=== PATIENT | male | born 1970 | race Caucasian/White ===

== ENCOUNTER → 2020-02-22 | Outpatient (CLI) | payer SELFPAY ==
--- NOTE | 2020-02-22 12:22 | Diagnostic Imaging Report ---
PROCEDURE: CT head without contrast. TECHNIQUE: Multiple contiguous axial images were obtained through the brain without the use of intravenous contrast. Auto Exposure Controls were utilized during the CT exam to meet ALARA standards for radiation dose reduction. INDICATION: Unknown history. The patient is unable to communicate. No prior examinations are available for comparison. FINDINGS: The ventricles and sulci are within normal limits. There is no hydrocephalus or cerebral edema. There is no midline shift or mass effect. There is no intracranial mass, hemorrhage, or extra-axial fluid collection. The visualized paranasal sinuses and mastoid air cells are clear. There are no regional areas of decreased attenuation appreciated to suggest an acute CVA. IMPRESSION: No acute intracranial abnormality. Dictated by: Dictated on workstation # [id number]
== END ==
LOC: RAD FS 11:48
PROVIDERS: ATTEND Nurse Practitioner
DX: R47.9 Unspecified speech disturbances (principal)
CPT/HCPCS: 70450

== ENCOUNTER → 2020-02-28 | Outpatient (CLI) | payer SELFPAY ==
--- NOTE | 2020-02-28 15:51 | Diagnostic Imaging Report ---
PROCEDURE: MR imaging of the brain without contrast. TECHNIQUE: Multiplanar, multisequence MR imaging of the brain was performed without contrast. INDICATION: Confusion. Difficulty with speech. COMPARISON: CT head on 02/22/2020. FINDINGS: No acute ischemia, mass, or hemorrhage. A small amount of chronic microvascular disease is seen in the periventricular and subcortical white matter. The ventricles and cortical sulci are mildly prominent. The basilar cisterns are symmetric and unremarkable. The sellar and suprasellar regions have a normal appearance. The brainstem and posterior fossa are unremarkable. The paranasal sinuses and mastoid air cells demonstrate normal signal characteristics. The globes and orbits are symmetric and unremarkable. The scalp and calvarium have a normal appearance. IMPRESSION: 1. No acute ischemia, mass, or hemorrhage. 2. Small amount of scattered chronic microvascular disease with mild generalized parenchymal volume loss. Dictated by: Dictated on workstation # [id number]
== END ==
LOC: RAD 14:51
PROVIDERS: ATTEND Nurse Practitioner
DX: R41.0 Disorientation, unspecified (principal); R47.9 Unspecified speech disturbances; F45.8 Other somatoform disorders
CPT/HCPCS: 70551

== ENCOUNTER 2020-03-09 11:26 | Emergency (ER) | payer SELFPAY ==
[~2020-03-09] VITALS: Ht 172.7 cm; Wt 48.7 kg
--- NOTE | 2020-03-09 11:42 | ED Psychosocial ---
General Stated Complaint: PSYCH EVAL Source: patient Exam Limitations: clinical condition (VIKAS PARK DO) History of Present Illness Date Seen by Provider: Mar 09, 2020 Time Seen by Provider: 11:32 Initial Comments The patient is a 49-year-old male who presents for evaluation of his mental health. The patient is unable to provide any meaningful history. He does deny any suicidal or homicidal thoughts. The patient's father drove him to the emergency department is currently in his car in the parking lot due to the coronavirus pandemic. The patient's booster plant operator was involved with the patient toagapito alida and recommended that he come to the emergency department for evaluation and likely placement. Awaiting additional information from the patient's father and booster plant operator at this time. The patient is denying any complaints currently. He is having difficulty with speaking and is stuttering. Severity: moderate Associated Symptoms: denies symptoms (VIKAS PARK DO) Allergies and Home Medications Allergies Coded Allergies: No Known Drug Allergies (Unverified , 03/09/20) Patient Home Medication List Home Medication List Reviewed: Yes (VIKAS PARK DO) Review of Systems Constitutional: no symptoms reported EENTM: no symptoms reported Respiratory: no symptoms reported Cardiovascular: no symptoms reported Gastrointestinal: no symptoms reported Genitourinary: no symptoms reported Musculoskeletal: no symptoms reported Skin: no symptoms reported Psychiatric/Neurological: Anxiety, Other (abnormal behavior) (VIKAS PARK DO) All Other Systems Reviewed Negative Unless Noted: Yes (VIKAS PARK DO) Past Bclytmg-Szjxsx-Ceckrd Hx Past Med/Social Hx: Reviewed Nursing Past Med/Soc Hx (VIKAS PARK DO) Physical Exam Vital Signs - First Documented 03/09/20 11:30 Temp 37.0 Pulse 86 Resp 18 B/P (MAP) 151/88 (109) Pulse Ox 97 O2 Delivery Room Air (LIONEL MOFFETT MD) Capillary Refill : (VIKAS PARK DO) Height, Weight, BMI Height: '" Weight: lbs. oz. kg; BMI Method: General Appearance: WD/WN, no apparent distress HEENT: PERRL/EOMI, pharynx normal Neck: non-tender, normal inspection Respiratory: lungs clear, normal breath sounds, no respiratory distress, no accessory muscle use Cardiovascular: regular rate, rhythm, no edema, no JVD Gastrointestinal: normal bowel sounds, non tender, soft Extremities: non-tender, no pedal edema Neurologic/Psychiatric: no motor/sensory deficits, alert Behavior/Eye Contact: cooperative, avoids eye contact, decreased rate of speech, other (anxious) Skin: normal color, warm/dry (VIKAS PARK DO) Progress/Results/Core Measures Results/Orders Lab Results Laboratory Tests Test 03/09/20 11:40 03/09/20 12:07 Range/Units White Blood Count 5.1 4.3-11.0 10^3/uL Red Blood Count 4.74 4.35-5.85 10^6/uL Hemoglobin 13.0 L 13.3-17.7 G/DL Hematocrit 39 L 40-54 % Mean Corpuscular Volume 83 80-99 FL Mean Corpuscular Hemoglobin 27 25-34 PG Mean Corpuscular Hemoglobin Concent 33 32-36 G/DL Red Cell Distribution Width 14.0 10.0-14.5 % Platelet Count 392 130-400 10^3/uL Mean Platelet Volume 9.1 7.4-10.4 FL Neutrophils (%) (Auto) 63 42-75 % Lymphocytes (%) (Auto) 25 12-44 % Monocytes (%) (Auto) 9 0-12 % Eosinophils (%) (Auto) 2 0-10 % Basophils (%) (Auto) 1 0-10 % Neutrophils # (Auto) 3.2 1.8-7.8 X 10^3 Lymphocytes # (Auto) 1.3 1.0-4.0 X 10^3 Monocytes # (Auto) 0.4 0.0-1.0 X 10^3 Eosinophils # (Auto) 0.1 0.0-0.3 10^3/uL Basophils # (Auto) 0.0 0.0-0.1 10^3/uL Sodium Level 142 135-145 MMOL/L Potassium Level 4.1 3.6-5.0 MMOL/L Chloride Level 104 98-107 MMOL/L Carbon Dioxide Level 23 21-32 MMOL/L Anion Gap 15 H 5-14 MMOL/L Blood Urea Nitrogen 15 7-18 MG/DL Creatinine 0.75 0.60-1.30 MG/DL Estimat Glomerular Filtration Rate > 60 BUN/Creatinine Ratio 20 Glucose Level 109 H 70-105 MG/DL Calcium Level 9.6 8.5-10.1 MG/DL Corrected Calcium 9.3 8.5-10.1 MG/DL Total Bilirubin 0.4 0.1-1.0 MG/DL Aspartate Amino Transf (AST/SGOT) 16 5-34 U/L Alanine Aminotransferase (ALT/SGPT) 18 0-55 U/L Alkaline Phosphatase 61 40-136 U/L Total Protein 7.0 6.4-8.2 GM/DL Albumin 4.4 3.2-4.5 GM/DL Salicylates Level < 5.0 L 5.0-20.0 MG/DL Acetaminophen Level < 10 L 10-30 UG/ML Serum Alcohol < 10 <10 MG/DL Urine Color YELLOW Urine Clarity CLEAR Urine pH 6.0 5-9 Urine Specific [place] >1.030 1.016-1.022 Urine Protein NEGATIVE NEGATIVE Urine Glucose (UA) NEGATIVE NEGATIVE Urine Ketones NEGATIVE NEGATIVE Urine Nitrite NEGATIVE NEGATIVE Urine Bilirubin NEGATIVE NEGATIVE Urine Urobilinogen 0.2 < = 1.0 MG/DL Urine Leukocyte Esterase NEGATIVE NEGATIVE Urine RBC (Auto) NEGATIVE NEGATIVE Urine RBC NONE /HPF Urine WBC NONE /HPF Urine Squamous Epithelial Cells 0-2 /HPF Urine Crystals PRESENT H /LPF Urine Calcium Oxalate Crystals FEW H /LPF Urine Bacteria NONE /HPF Urine Casts NONE /LPF Urine Mucus SMALL H /LPF Urine Culture Indicated NO Urine Opiates Screen NEGATIVE NEGATIVE Urine Oxycodone Screen NEGATIVE NEGATIVE Urine Methadone Screen NEGATIVE NEGATIVE Urine Propoxyphene Screen NEGATIVE NEGATIVE Urine Barbiturates Screen NEGATIVE NEGATIVE Ur Tricyclic Antidepressants Screen NEGATIVE NEGATIVE Urine Phencyclidine Screen NEGATIVE NEGATIVE Urine Amphetamines Screen NEGATIVE NEGATIVE Urine Methamphetamines Screen NEGATIVE NEGATIVE Urine Benzodiazepines Screen NEGATIVE NEGATIVE Urine Cocaine Screen NEGATIVE NEGATIVE Urine Cannabinoids Screen NEGATIVE NEGATIVE (LIONEL MOFFETT MD) Vital Signs/I&O (LIONEL MOFFETT MD) Progress Progress Note : Progress Note @1225 - Case discussed with the patient's father who states that the patient lives at home alone and lately has been noncompliant with his medications and also not eating. The father discussed this with the patient's booster plant operator, Vinayak, who felt that the patient would need to be placed inpatient somewhere. @1800 - Labs unremarkable. Mental health evaluation completed, awaiting [facility] t. Pt care transferred from Dr. Park to Dr. Moffett at this time. (VIKAS PARK DO) Progress Note #1: Time: 18:00 Progress Note Patient still calm and cooperative with staff and pending psychiatric inpatient placement. Progress Note #2: Time: 06:00 Progress Note Patient still awaiting involuntary placement. care passed to Dr. Cooper at shift change on 10 Mar 2020 at 0600. (LIONEL MOFFETT MD) Progress Note #1: Time: 16:31 Progress Note #2: Progress Note all above appreciated, pt has done fine no complaints can't really evaluated pt minimally verbal is medically cleared have now received call from [facility] Dr. Lara agrees to accept will transfer (JANEY COOPER MD) Comment @1148 - normal sinus rhythm, rate of 80, left axis deviation is noted, no acute ischemic findings noted, no STEMI, reviewed and interpreted by myself (VIKAS PARK DO) Departure Impression Primary Impression: Self-care deficit for feeding Additional Impression: Self-care deficit for medication administration Disposition: 65 XFER TO PSYCH HOSP/UNIT Condition: Stable Departure-Patient Inst. Referrals: [facility] (PCP) Primary Care Physician JEET JARRETT APRN (Family) Primary Care Physician VIKSA PARK DO Mar 09, 2020 11:42 LIONEL MOFFETT MD Mar 09, 2020 18:36 JANEY COOPER MD March 10, 2020 16:35
[2020-03-09 11:56] LABS: WHITE BLOOD COUNT 5.1 10^3/uL (4.3-11.0)
[2020-03-09 11:57] LABS: BASOPHILS % (AUTO) 1 % (0-10); EOSINOPHILS # (AUTO) 0.1 10^3/uL (0.0-0.3); EOSINOPHILS % (AUTO) 2 % (0-10); HEMATOCRIT 39 % (40-54); LYMPHOCYTES # (AUTO) 1.3 X 10^3 (1.0-4.0); LYMPHOCYTES % (AUTO) 25 % (12-44); MEAN CORPUSCULAR HEMOGLOBIN 27 PG (25-34); MEAN CORPUSCULAR HGB CONC 33 G/DL (32-36); MEAN CORPUSCULAR VOLUME 83 FL (80-99); MEAN PLATELET VOLUME 9.1 FL (7.4-10.4); MONOCYTES # (AUTO) 0.4 X 10^3 (0.0-1.0); MONOCYTES % (AUTO) 9 % (0-12); NEUTROPHILS # (AUTO) 3.2 X 10^3 (1.8-7.8); NEUTROPHILS % (AUTO) 63 % (42-75); PLATELET COUNT 392 10^3/uL (130-400)
[2020-03-09 12:09] LABS: BUN/CREATININE RATIO 20; CALCIUM 9.6 MG/DL (8.5-10.1); CARBON DIOXIDE 23 MMOL/L (21-32); CHLORIDE 104 MMOL/L (98-107); CREATININE SERUM 0.75 MG/DL (0.60-1.30); GFR ESTIMATED > 60; GLUCOSE 109 MG/DL (70-105); POTASSIUM 4.1 MMOL/L (3.6-5.0); SODIUM 142 MMOL/L (135-145)
[2020-03-09 12:10] LABS: ACETAMINOPHEN < 10 UG/ML (10-30); ALANINE AMINOTRANSFERASE 18 U/L (0-55); ALBUMIN 4.4 GM/DL (3.2-4.5); ALKALINE PHOSPHATASE 61 U/L (40-136); BILIRUBIN,TOTAL 0.4 MG/DL (0.1-1.0); SALICYLATE < 5.0 MG/DL (5.0-20.0)
[2020-03-09 12:22] LABS: BILIRUBIN,URINE NEGATIVE (NEGATIVE); CALCIUM OXALATE CRYSTALS,UR FEW /LPF; CLARITY,URINE CLEAR; COLOR,URINE YELLOW; GLUCOSE, URINE (UA) NEGATIVE (NEGATIVE); KETONES,URINE NEGATIVE (NEGATIVE); LEUKOCYTE ESTERASE ,URINE NEGATIVE (NEGATIVE); NITRITE,URINE NEGATIVE (NEGATIVE); PROTEIN,URINE NEGATIVE (NEGATIVE); SQUAMOUS EPITHELIAL CELL,UR 0-2 /HPF
[2020-03-09 12:28] LABS: AMPHETAMINE SCREEN, URINE NEGATIVE (NEGATIVE); BARBITURATE SCREEN URINE NEGATIVE (NEGATIVE); BENZODIAZEPINES SCREEN URINE NEGATIVE (NEGATIVE); CANNABINOID SCREEN, URINE NEGATIVE (NEGATIVE); COCAINE SCREEN URINE NEGATIVE (NEGATIVE); METHADONE STAT NEGATIVE (NEGATIVE); METHAMPHETAMINE SCREEN URINE S NEGATIVE (NEGATIVE); OPIATE SCREEN URINE NEGATIVE (NEGATIVE); OXYCODONE STAT NEGATIVE (NEGATIVE); PROPOXYPHENE STAT NEGATIVE (NEGATIVE); TRICYCLIC ANTIDEPRESSANTS SCRE NEGATIVE (NEGATIVE)
--- OUTSIDE RECORDS SUMMARY | 2020-03-09 12:31 | XMS REPORT | Continuity of Care Document ---
Author Organization Unknown Address Unknown Phone Unavailable Allergies There is no data. Medications There is no data. Problems Date Dx Coded Attending Type Code Diagnosis Diagnosed By 02/23/2020 GAY PINA APRN Ot R47.9 UNSPECIFIED SPEECH DISTURBANCES 02/24/2020 GAY PINA APRN Ot R47.9 UNSPECIFIED SPEECH DISTURBANCES 02/28/2020 GAY PINA APRN Ot R47.9 UNSPECIFIED SPEECH DISTURBANCES 02/29/2020 GAY PINA APRN Ot F45.8 OTHER SOMATOFORM DISORDERS 02/29/2020 GAY PINA APRN Ot R41.0 DISORIENTATION, UNSPECIFIED 02/29/2020 GAY PINA APRN Ot R47.9 UNSPECIFIED SPEECH DISTURBANCES Procedures There is no data. Results Test Result Range TSH w/ FREE T4 - 01/25/20 12:25 TSH 0.58 mIU/L 0.40-4.50 T4, FREE 1.6 ng/dL 0.8-1.8 CMP - 01/25/20 12:25 GLUCOSE 84 mg/dL 65-99 UREA NITROGEN (BUN) 18 mg/dL 7-25 CREATININE 0.97 mg/dL 0.70-1.33 eGFR NON-AFR. CAMBODIAN 90 mL/min/1.73m2 > OR = 60 eGFR 104 mL/min/1.73m2 > OR = 60 BUN/CREATININE RATIO NOT APPLICABLE (calc) 6-22 SODIUM 139 mmol/L 135-146 POTASSIUM 4.0 mmol/L 3.5-5.3 CHLORIDE 100 mmol/L 98-110 CARBON DIOXIDE 23 mmol/L 20-32 CALCIUM 10.1 mg/dL 8.6-10.3 PROTEIN, TOTAL 6.8 g/dL 6.1-8.1 ALBUMIN 4.6 g/dL 3.6-5.1 GLOBULIN 2.2 g/dL (calc) 1.9-3.7 ALBUMIN/GLOBULIN RATIO 2.1 (calc) 1.0-2. 5 BILIRUBIN, TOTAL 0.6 mg/dL 0.2-1.2 ALKALINE PHOSPHATASE 59 U/L 35-144 AST 15 U/L 10-35 ALT 15 U/L 9-46 CBC - 01/25/20 12:25 WHITE BLOOD CELL COUNT 4.7 Thousand/uL 3 .8-10.8 RED BLOOD CELL COUNT 5.29 Million/uL 4.2 0-5.80 HEMOGLOBIN 14.6 g/dL 13.2-17.1 HEMATOCRIT 43.5 % 38.5-50.0 MCV 82.2 fL 80.0-100.0 MCH 27.6 pg 27.0-33.0 MCHC 33.6 g/dL 32.0-36.0 RDW 13.8 % 11.0-15.0 PLATELET COUNT 281 Thousand/uL 140-400 MPV 10.6 fL 7.5-12.5 ABSOLUTE NEUTROPHILS 3041 cells/uL 1500- 7800 ABSOLUTE LYMPHOCYTES 1222 cells/uL 850-3 900 ABSOLUTE MONOCYTES 357 cells/uL 200-950 ABSOLUTE EOSINOPHILS 28 cells/uL 15-500 ABSOLUTE BASOPHILS 52 cells/uL 0-200 NEUTROPHILS 64.7 % NRG LYMPHOCYTES 26.0 % NRG MONOCYTES 7.6 % NRG EOSINOPHILS 0.6 % NRG BASOPHILS 1.1 % NRG Complete blood count (CBC) with automate d white blood cell (WBC) differential - 03/09/20 11:40 Blood leukocytes automated count (number/volume) 5.1 10*3/uL 4.3-11.0 Blood erythrocytes automated count (number/volume) 4.74 10*6/uL 4.35-5.85 Venous blood hemoglobin measurement (mass/volume) 13.0 g/dL 13.3-17.7 Blood hematocrit (volume fraction) 39 % 40-54 Automated erythrocyte mean corpuscular volume 83 [ foz_us] 80-99 Automated erythrocyte mean corpuscular h emoglobin (mass per erythrocyte) 27 pg 25-34 Automated erythrocyte mean corpuscular h emoglobin concentration measurement (mass/volume) 33 g/dL 32-36 Automated erythrocyte distribution width ratio 14. 0 % 10.0- 14.5 Automated blood platelet count (count/volume) 392 10*3/uL 130-400 Automated blood platelet mean volume measurement 9.1 [foz_us] 7.4-10.4 Automated blood neutrophils/100 leukocytes 63 % 42-75 Automated blood lymphocytes/100 leukocytes 25 % 12-44 Blood monocytes/100 leukocytes 9 % 0-12 Automated blood eosinophils/100 leukocytes 2 % 0-10 Automated blood basophils/100 leukocytes 1 % 0-10 Blood neutrophils automated count (number/volume) 3.2 10*3 1.8-7.8 Blood lymphocytes automated count (number/volume) 1.3 10*3 1.0-4.0 Blood monocytes automated count (number/volume) 0. 4 10*3 0.0-1.0 Automated eosinophil count 0.1 10*3/uL 0 .0-0.3 Automated blood basophil count (count/volume) 0.0 10*3/uL 0.0-0.1 Comprehensive metabolic panel - 03/09/20 11:40 Serum or plasma sodium measurement (moles/volume) 142 mmol/L 135-145 Serum or plasma potassium measurement (moles/volume) 4.1 mmol/L 3.6-5.0 Serum or plasma chloride measurement (moles/volume) 104 mmol/L 98-107 Carbon dioxide 23 mmol/L 21-32 Serum or plasma anion gap determination (moles/volume) 15 mmol/L 5-14 Serum or plasma urea nitrogen measurement (mass/volume ) 15 mg/dL 7-18 Serum or plasma creatinine measurement (mass/volume) 0.75 mg/dL 0.60-1.30 Serum or plasma urea nitrogen/creatinine mass ratio 20 NRG Serum or plasma creatinine measurement w ith calculation of estimated glomerular filtration rate > NRG Serum or plasma glucose measurement (mass/volume) 109 mg/dL 70-105 Serum or plasma calcium measurement (mass/volume) 9.6 mg/dL 8.5-10.1 Serum or plasma total bilirubin measurement (mass/volu me) 0.4 mg/dL 0.1-1.0 Serum or plasma alkaline phosphatase carmel surement (enzymatic activity/volume) 61 U/L 40-136 Serum or plasma aspartate aminotransfera se measurement (enzymatic activity/volume) 16 U/L 5-34 Serum or plasma alanine aminotransferase measurement (enzymatic activity/volume) 18 U/L 0-55 Serum or plasma protein measurement (mass/volume) 7.0 g/dL 6.4-8.2 Serum or plasma albumin measurement (mass/volume) 4.4 g/dL 3.2-4.5 CALCIUM CORRECTED 9.3 mg/dL 8.5-10.1 Serum or plasma salicylates measurement (mass/volume) - 03/09/20 11:40 Serum or plasma salicylates measurement (mass/volume) < mg/dL 5.0-20.0 Serum or plasma acetaminophen measuremen t (mass/volume) - 03/09/20 11:40 Serum or plasma acetaminophen measurement (mass/volume ) < ug/mL 10-30 Serum or plasma ethanol measurement (mas s/volume) - 03/09/20 11:40 Serum or plasma ethanol measurement (mass/volume) < mg/dL <10 Complete urinalysis with reflex to cultu re - 03/09/20 12:07 Urine color determination YELLOW NRG Urine clarity determination CLEAR NR G Urine pH measurement by test strip 6.0 5-9 Specific gravity of urine by test strip > 1.016-1.022 Urine protein assay by test strip, semi-quantitative NEGATIVE NEGATIVE Urine glucose detection by automated test strip NE GATIVE NEGATIVE Erythrocytes detection in urine sediment by light micr oscopy NEGATIVE NEGATIVE Urine ketones detection by automated test strip NE GATIVE NEGATIVE Urine nitrite detection by test strip NEGATIVE NEGATIVE Urine total bilirubin detection by test strip NEGA TIVE NEGATIVE Urine urobilinogen measurement by automated test strip (mass/volume) 0.2 mg/dL < = 1.0 Urine leukocyte esterase detection by dipstick NEG ATIVE NEGATIVE Automated urine sediment erythrocyte cou nt by microscopy (number/high power field) NONE NRG Automated urine sediment leukocyte count by microscopy (number/high power field) NONE NRG Bacteria detection in urine sediment by light microsco py NONE NRG Squamous epithelial cells detection in u rine sediment by light microscopy 0-2 NRG Crystals detection in urine sediment by light microsco py PRESENT NRG Casts detection in urine sediment by light microscopy NONE NRG Mucus detection in urine sediment by light microscopy SMALL NRG Complete urinalysis with reflex to culture NO NRG Calcium oxalate crystals detection in ur ine sediment by light microscopy FEW NRG Urine drug screening test - 03/09/20 12: 07 Urine phencyclidine detection by screening method NEGATIVE NEGATIVE Urine benzodiazepines detection by screening method NEGATIVE NEGATIVE Urine cocaine detection NEGATIVE NEGATI VE Urine amphetamines detection by screening method N EGATIVE NEGATIVE Urine methamphetamine detection by screening method NEGATIVE NEGATIVE Urine cannabinoids detection by screening method N EGATIVE NEGATIVE Urine opiates detection by screening method NEGATI VE NEGATIVE Urine barbiturates detection NEGATIVE N EGATIVE Screening urine tricyclic antidepressants detection NEGATIVE NEGATIVE Urine methadone detection by screening method NEGA TIVE NEGATIVE Urine oxycodone detection NEGATIVE NEGA TIVE Urine propoxyphene detection NEGATIVE N EGATIVE Encounters ACCT No. Visit Date/Time Discharge Status Pt. Type Provider Facility Loc./Unit Complaint [id number] 03/06/2020 10:30:00 [facility] [id number] 01/25/2020 10:00:00 Document Registration [id number] 02/28/2020 14:51:00 23:59:59 CLS Outpatient GAY PINA APRN [facility] RAD CONFUSION,DIFFI CULTY WITH SPEECH,BRUXISM [id number] 02/22/2020 11:48:00 23:59:59 CLS Outpatient GAY PINA APRN [facility] RAD FS R47.9 [id number] 03/09/2020 11:57:00 Document Registration
--- NOTE | 2020-03-09 15:53 | NUR ---
Contacted by Vinayak at [facility] and informed that he was looking for involuntary hospialization for the patient due to his ability to consent to hospitalization at this time.
--- NOTE | 2020-03-09 16:52 | NUR ---
Rashaad with [facility] called at this time to say they are going to supply meals for patient while in ER and that we need to fax info to [facility]. They will review patient's chart. He said they might allow him to go to another hospital if beds open up and they allow him. He said there is 9 ahead of him.
--- NOTE | 2020-03-09 19:22 | NUR ---
PT SITTING ON SIDE OF BED. WHEN ASKED, PT STATES THERE IS NOTHING HE NEEDS AT THIS TIME. ROOM DOOR IS OPEN AND PT IS WITHIN VIEW.
--- NOTE | 2020-03-09 21:09 | NUR ---
PT STANDING BESIDE BED. PT HAS NOT EATEN ANY OF THE FOOD BROUGHT TO HIM.
--- NOTE | 2020-03-10 00:11 | NUR ---
PT SITTING ON SIDE OF BED. PT ASKED AND STATED THAT THERE IS NOTHING HE NEEDS AT THIS TIME.
--- NOTE | 2020-03-10 02:17 | NUR ---
PT STANDING NEXT TO BED. PT CONTINUES TO STATES THAT HE NEEDS NOTHING AT THIS TIME. PT HAS NOT EATEN ANY OF THE FOOD DELIVERED TO HIM AND STATES THAT HE DOES NOT WANT ANYTHING TO EAT.
--- NOTE | 2020-03-10 05:35 | NUR ---
PT STILL STANDING IN ROOM NEXT TO DOOR. PT OFFERED WARM BLANKET AND ASKED IF HE WOULD LIKE THE LIGHTS OFF TO BE ABLE TO REST AND PT STATED HE DID NOT WANT TO LAY DOWN.
--- NOTE | 2020-03-10 07:40 | NUR ---
Pt is standing at doorway. Pt has been asked if he wanted to lay down and get some sleep with warm blankets and the lights off. Pt shook his head no. Pt is still standing in the doorway of room 4.
[2020-03-10 08:17] VITALS: BP 136/100
--- NOTE | 2020-03-10 08:17 | NUR ---
Vital Signs done at this time. Pt would not relax arm, so blood pressure a little high.
--- NOTE | 2020-03-10 08:20 | NUR ---
Got patient to lay down and try to rest.
--- NOTE | 2020-03-10 09:52 | NUR ---
Talked to Rashaad with [facility] agrees he needs placement. Waiting for [facility] [place] to review chart and get back with him. He will call me with updates. Pt was given [employer] breaksfast. Pt took a bite or two, but is currently sitting in the bed laying still.
--- NOTE | 2020-03-10 09:58 | NUR ---
Kasey with [facility] called at this time wanting update on patient and last set of vital signs. Information was given at this time.
--- NOTE | 2020-03-10 10:45 | NUR ---
Pt was found standing up above side table packing up his [employer] breakfast. I asked him what he was doing and he stated he was done with it. I asked him if he wanted me to throw it away for him and he stated yes. Food was thrown out. Pt had only taken a few small bites of his hashbrown. I asked patient if he wanted to lay back down and he stated that he is fine. Pt continues to stand up next to bed.
--- NOTE | 2020-03-10 15:49 | NUR ---
Spoke to Renée at [facility] and she needed number to give a doc to doc report and asked if patient could feed himself. I let her know he could feed himself. If doc accepts pt then pt Renée will call back.
[2020-03-10 16:20] VITALS: BP 124/97
[2020-03-10 16:35] VITALS: BP 124/97
--- NOTE | 2020-03-10 17:00 | NUR ---
Rashaad called and stated that he spoke to [facility] and he will not be transporting but he has someone that will be transporting the patient.
--- NOTE | 2020-03-10 17:32 | NUR ---
Pt went with [facility] at this time. He was given two wallets, two phones, shoes and clothes.
== END 2020-03-10 17:32 ==
LOC: EDUNIT# 11:26 → ER FS 11:27
DX: Z03.89 Encounter for observation for other suspected diseases and conditions ruled out (principal); Z74.1 Need for assistance with personal care
CPT/HCPCS: 36415; 80053; 80306; 80320; 80329; 81000; 85025; 93005